=== PATIENT | female | born 1995 | race Caucasian/White ===

== ENCOUNTER 2017-03-08 16:11 | Emergency (ER) | payer OTHER ==
--- NOTE | 2017-03-08 16:49 | EDPHY ---
H & P Stated Complaint: PALPATATIONS, DIZZINESS Source: Patient Exam Limitations: No limitations - Personal History LMP (Females 10-55): Over 28 Days Ago Current Tetanus/Diphtheria Vaccine: Unsure Current Tetanus Diphtheria and Acellular Pertussis (TDAP): Unsure - Medical/Surgical History Hx Asthma: No Hx Chronic Respiratory Disease: No Hx Diabetes: No Hx Cardiac Disease: No Hx Renal Disease: No Hx Cirrhosis: No Hx Alcoholism: No Hx HIV/AIDS: No Hx Splenectomy or Spleen Trauma: No Other PMH: DENIES - Social History Smoking Status: Current every day smoker Time Seen by Provider: 03/08/17 16:48 HPI/ROS: HPI: This is a 22-year-old female who presents with Chief Complaint: PALPITATIONS, DIZZINESS Location: Heart Quality: Palpitation Duration: 2-3 months Signs and Symptoms: No fever, no chest pain, no shortness of breath, no cough, no wheezing, + lightheadedness during the episodes, no radiation, no weakness, no urinary symptoms, no upper respiratory symptoms Timing: Occurred last night Severity: Mild Context: Patient is generally healthy, tobacco user, caffeine user approximately 1-2 cups of coffee per day, presents with sudden onset of her heart racing last night lasting several seconds after smoking marijuana/ cigarettes and drinking alcohol. She reports that these episodes have happened approximately 3-5 times over the last 2-3 months. When questioned further, it does correspond to when she smoking cigarettes. The palpitation episodes usually occur when she is sitting down. Not related to exercise or position changes. She denies any other recreational drug use. Father has a history of coronary artery disease, hypertension, hyperlipidemia in his is 50s. No local primary care provider. LMP is due any day. Reports that she drinks water throughout the day and denies vertigo/ear pain/fever/neck stiffness/headache/ nausea/vomiting/diaphoresis. She currently feels well. Modifying Factors: None Comment: ROS: see HPI Constitutional: No fever, no chills, no weight loss Eyes: No blurred vision Respiratory: No shortness of breath, no cough Cardiovascular: No chest pain Gastrointestinal: No nausea, no vomiting, no diarrhea Genitourinary: No dysuria Extremities: No myalgias Neurologic: No weakness, no numbness Skin: No rashes Hematologic: No bruising, no bleeding MEDICAL/SURGICAL/SOCIAL HISTORY: Medical history: Generally healthy. Does not take any regular medications. Surgical history: Denies Social history: Employed. No primary care provider. CONSTITUTIONAL: Extremely well-appearing young adult white female, polite and cooperative, awake and alert, no obvious distress HEENT: Atraumatic and normocephalic, PERRL, EOMI. Tympanic membranes clear. Oropharynx clear, no exudate and moist pink mucosa. Airway patent. No lymphadenopathy. No meningismus. Cardiovascular: Normal S1/S2, regular rate, regular rhythm, without murmur rub or gallop. PULMONARY/CHEST: Symmetrical and nontender. Clear to auscultation bilaterally. Good air movement. No accessory muscle usage. ABDOMEN: Soft, nondistended, nontender, no rebound, no guarding, no peritoneal signs, no masses or organomegaly. No CVAT. EXTREMITIES: 2/2 pulses, strength 5/5, no deformities, no clubbing, no cyanosis or edema. NEUROLOGICAL: no focal neuro deficits. GCS 15. SKIN: Warm and dry, no erythema. no rash. Good capillary refill. (Estephanie Campos) Constitutional: Initial Vital Signs Temperature (C) 36.5 C 03/08/17 16:17 Heart Rate 70 03/08/17 16:17 Respiratory Rate 17 03/08/17 16:17 Blood Pressure 152/83 H 03/08/17 16:17 O2 Sat (%) 100 03/08/17 16:17 O2 Delivery Mode Room Air Allergies/Adverse Reactions: No Known Allergies Allergy (Unverified 03/08/17 16:15) Home Medications: Medication Instructions Recorded Hydroxyzine HCl 03/08/17 Medical Decision Making - Diagnostics EKG Interpretation: 12 lead EKG: Indication: Palpitation Rhythm: Normal sinus rhythm, rate of 62 beats per minute Adrian: Borderline left Intervals: Normal QRS: Normal ST segments: Normal T segment: Flipped in V1 V2 INTERPRETATION: No acute ischemic changes The 12 lead EKG was interpreted by myself and with attending. (Estephanie Campos) ED Course/Re-evaluation: EKG, labs, chest x-ray, IV fluids, UDS ordered Vital signs reviewed upon arrival and within normal limits. 1735: Chest x-ray my read shows no signs of effusion, opacity, pneumothorax, widened mediastinum. Labs reviewed and completely unremarkable. This patient was seen under the supervision of my secondary supervising physician. I evaluated care for this patient independently. Discussed this patient with Dr. Coombs who did not see the patient. Patient's presentation, labs/imaging, treatment and plan of care were discussed with secondary supervising physician. (Estephanie Campos) Differential Diagnosis: Dizziness including but not limited to peripheral and central causes of vertigo , orthostatic causes including dehydration, tobacco or caffeine side effect, anxiety and blood loss. (Estephanie Campos) Other Provider: The patient was evaluated and managed by the Physician Restaurant Shift Supervisor. I discussed the patient's presentation and course with the physician elder assistant and agree with the evaluation. My co-signature indicates that I have reviewed this chart and I agree with the findings and plan of care as documented. I am the secondary supervising physician. (Raysa Coombs) - Data Points Laboratory Results: Laboratory Results 03/08/17 16:52 03/08/17 17:00 Medications Given: Discontinued Medications Sodium Chloride (Ns) 1,000 mls @ 0 mls/hr IV EDNOW ONE; Wide Open PRN Reason: Protocol Stop: 03/08/17 16:54 Last Admin: 03/08/17 17:33 Dose: 1,000 mls Departure - Departure Disposition: Home, Routine, Self-Care Clinical Impression: Intermittent palpitations Condition: Good Instructions: Heart Palpitations (ED) Additional Instructions: Your laboratory findings, chest x-ray, EKG today were all unremarkable for acute emergency causes of your palpitations. Please refrain for tobacco use, caffeine use, recreational drug use. Symptoms persist over the next 1-2 weeks, with cessation of tobacco, caffeine, recreational drug use; please establish care with primary care provider for follow-up and further evaluation. You may need a Holter monitor to be placed by Cardiology symptoms continue to persist. Referrals: Tae Johnson DO [Medical Doctor] - As per Instructions Eddie Mccrary MD [Medical Doctor] - As per Instructions
[2017-03-08] MEDS ORDERED: NS 1,000 ML IV ONE (16:53)
--- NOTE | 2017-03-08 17:01 | CPEKG ---
Heart Rate: 62 RR Interval: 968 P-R Interval: 164 QRSD Interval: 94 QT Interval: 420 QTC Interval: 427 P [place]: 63 QRS [place]: -37 T Wave [place]: 19 EKG Severity - OTHERWISE NORMAL ECG - EKG Impression: SINUS RHYTHM EKG Impression: LEFT AXIS DEVIATION Electronically Signed By: Dane Palmer 09-Mar-2017 11:38:09
[2017-03-08 18:16] LABS: PLATELET COUNT 236 10^3/uL (150-400)
[2017-03-08 19:23] VITALS: BP 145/99; PULSE 79; RESP 19; TEMP 98.6; O2SAT 96
== END 2017-03-08 19:21 | disposition home or self-care (01) ==
DX: R00.2 Palpitations (principal); F17.200 Nicotine dependence, unspecified, uncomplicated; E86.9 Volume depletion, unspecified